=== PATIENT | female | born 2000 | race Caucasian/White ===

== ENCOUNTER 2020-07-19 19:56 | Emergency (ER) | payer BC ==
[2020-07-19 20:43] LABS: Pregnancy Test - Urine (BHCG) Negative (Negative); Pregu Control Background? CLEAR/WHITE (CLR/WHITE); Pregu Control Bar Appear? YES (CONTROL BAR)
[2020-07-19 20:49] LABS: Amphetamine Not Detected (NotDetected); Barbiturates Screen Not Detected (NotDetected); Benzodiazepine Screen Not Detected (NotDetected); Cocaine Metabolite Screen Not Detected (NotDetected); Methadone Not Detected (NotDetected); Methamphetamine Not Detected (NotDetected); Opiate Screen Not Detected (NotDetected); Oxycodone Screen Not Detected (NotDetected); Phencyclidine (PCP) Not Detected (NotDetected); THC/Cannabinoid Screen Not Detected (NotDetected); Tricyclic Screen Not Detected (NotDetected)
[2020-07-19 20:50] LABS: #Basophils 0.1 10x3/uL (0.0-0.2); #Monocytes 0.8 10x3/uL (0.0-1.1); #Neutrophils 7.2 10x3/uL (1.5-8.4); %Basophils 0.6 % (0.0-2.0); %Eosinophils 0.4 % (0.0-6.0); %Lymphocytes 24.7 % (18.0-47.0); %Monocytes 7.3 % (0.0-10.0); %Neutrophils 66.4 % (40.0-75.0); Hemoglobin 13.9 g/dL (12.0-15.5); Mean Corpuscular HGB CONC 34.2 g/dL (32.0-36.0); Mean Corpuscular Hemoglobin 30.9 pg (27.0-33.0); Mean Corpuscular Volume 90.4 fl (81.6-98.3); Mean Platelet Volume 9.4 fl (7.4-10.4); Platelet Count 224 10x3/uL (150-450); RBC Distribution Width 12.1 % (11.5-14.5); White Blood Cell (WBC) Count 10.9 10x3/uL (3.5-10.5)
[2020-07-19 21:05] LABS: ALT (SGPT) 18 U/L (8-55); AST (SGOT) 18 U/L (5-30); Albumin 4.5 g/dL (3.5-5.0); Alcohol Less than 10 mg/dL (Less than 10); Alkaline Phosphatase 60 U/L (40-100); Anion Gap 15 mmol/L (10-20); BUN (Urea Nitrogen) 8 mg/dL (8.4-21.0); Bilirubin, Total 0.8 mg/dL (0.2-1.2); Calc. Creatinine Clearance 0 mL/min (70-130); Calcium 9.5 mg/dL (7.8-10.44); Carbon Dioxide 21 mmol/L (22-29); Chloride 105 mmol/L (98-107); Globulin 3.2 g/dL (2.4-3.5); Glucose 94 mg/dL (70-105); Lipase 52 U/L (8-78); Magnesium 1.9 mg/dL (1.7-2.2); Potassium 4.2 mmol/L (3.5-5.1); Protein, Total 7.7 g/dL (6.0-8.3); Salicylate Less than 8.0 mg/dL (15.0-30.0); Sodium 137 mmol/L (136-145)
== END 2020-07-19 23:15 | disposition home or self-care (01) ==
LOC: CSHERS 19:56
DX: T39.1X2A Poisoning by 4-Aminophenol derivatives, intentional self-harm, initial encounter (principal); F43.20 Adjustment disorder, unspecified
CPT/HCPCS: 80053; 80306; 80307; 81025; 83690; 83735; 84443; 85025; 93005